=== PATIENT | female | born 1990 | race Hispanic/Latino ===

== ENCOUNTER 2023-10-06 14:08 | Day surgery (SDC) | payer OTHER ==
[2023-10-06 14:41] VITALS: BMI 32.5
[2023-10-06] MEDS ORDERED: hydrALAZINE 20 MG/ML VIAL SLOW IVP PRN (15:27)
[2023-10-06 15:54] LABS: Creatinine, Urine 196.61 mg/dL (47-110)
[2023-10-06 16:39] LABS: #Basophils 0.1 10x3/uL (0.0-0.2); #Eosinphils 0.1 10x3/uL (0.0-0.5); #Monocytes 0.8 10x3/uL (0.0-1.1); #Neutrophils 5.6 10x3/uL (1.5-8.4); %Basophils 0.6 % (0.0-2.0); %Eosinophils 1.3 % (0.0-6.0); %Lymphocytes 26.9 % (18.0-47.0); %Monocytes 8.3 % (0.0-10.0); %Neutrophils 62.5 % (40.0-75.0); Hematocrit 34.9 % (34.9-44.5); Mean Corpuscular HGB CONC 34.4 g/dL (32.0-36.0); Mean Corpuscular Hemoglobin 29.6 pg (27.0-33.0); Mean Corpuscular Volume 86.2 fl (81.6-98.3); Mean Platelet Volume 11.9 fl (7.4-10.4); Platelet Count 254 10x3/uL (150-450); RBC Distribution Width 12.5 % (11.5-14.5); Red Blood Cell (RBC) Count 4.05 10x6/uL (3.90-5.03)
[2023-10-06 17:02] LABS: ALT (SGPT) 63 U/L (8-55); AST (SGOT) 66 U/L (5-34); Albumin 3.4 g/dL (3.5-5.0); Alkaline Phosphatase 125 U/L (40-110); Anion Gap 14 mmol/L (10-20); BUN (Urea Nitrogen) 8 mg/dL (7.0-18.7); Bilirubin, Total 0.5 mg/dL (0.2-1.2); Calc. Creatinine Clearance 136 mL/min (70-130); Calcium 8.8 mg/dL (7.8-10.44); Carbon Dioxide 21 mmol/L (22-29); Chloride 106 mmol/L (98-107); Estimated GFR 114; Globulin 3.2 g/dL (2.4-3.5); Glucose 106 mg/dL (70-105); Potassium 3.7 mmol/L (3.5-5.1); Protein, Total 6.6 g/dL (6.0-8.3); Sodium 137 mmol/L (136-145)
== END 2023-10-06 19:19 | disposition short-term general hospital (02) ==
LOC: CSHLD/OP 14:08
PROVIDERS: ATTEND Advanced Practice Midwife
DX: O99.891 Other specified diseases and conditions complicating pregnancy (principal); R03.0 Elevated blood-pressure reading, without diagnosis of hypertension; O36.5930 Maternal care for other known or suspected poor fetal growth, third trimester, not applicable or unspecified; O43.102 Malformation of placenta, unspecified, second trimester; Z3A.23 23 weeks gestation of pregnancy; Z90.49 Acquired absence of other specified parts of digestive tract; Z98.82 Breast implant status; Z79.899 Other long term (current) drug therapy
CPT/HCPCS: 36415; 80053; 82570; 84156; 85025

== ENCOUNTER 2023-11-25 16:18 | Inpatient (IN) | payer OTHER ==
[2023-11-25] MEDS ORDERED: Lactated Ringer's 1,000 ML IV SCH (17:30)
[2023-11-25] MEDS ORDERED: hydrALAZINE 20 MG/ML VIAL SLOW IVP PRN (17:39)
[2023-11-25 18:58] LABS: #Monocytes 0.4 10x3/uL (0.0-1.1); #Neutrophils 3.6 10x3/uL (1.5-8.4); %Basophils 0.2 % (0.0-2.0); %Eosinophils 0.4 % (0.0-6.0); %Lymphocytes 22.4 % (18.0-47.0); %Monocytes 7.4 % (0.0-10.0); %Neutrophils 68.8 % (40.0-75.0); Hematocrit 32.6 % (34.9-44.5); Hemoglobin 10.7 g/dL (12.0-15.5); Mean Corpuscular HGB CONC 32.8 g/dL (32.0-36.0); Mean Corpuscular Hemoglobin 27.4 pg (27.0-33.0); Mean Corpuscular Volume 83.6 fl (81.6-98.3); Mean Platelet Volume 11.3 fl (7.4-10.4); Platelet Count 227 10x3/uL (150-450); RBC Distribution Width 13.2 % (11.5-14.5); White Blood Cell (WBC) Count 5.3 10x3/uL (3.5-10.5)
[2023-11-25 19:13] LABS: ALT (SGPT) 120 U/L (8-55); AST (SGOT) 189 U/L (5-34); Albumin 3.2 g/dL (3.5-5.0); Alkaline Phosphatase 234 U/L (40-110); Anion Gap 15 mmol/L (10-20); BUN (Urea Nitrogen) 6 mg/dL (7.0-18.7); Bilirubin, Total 0.7 mg/dL (0.2-1.2); Calc. Creatinine Clearance 0 mL/min (70-130); Calcium 8.2 mg/dL (7.8-10.44); Carbon Dioxide 19 mmol/L (22-29); Chloride 104 mmol/L (98-107); Estimated GFR 121; Glucose 70 mg/dL (70-105); Protein, Total 6.2 g/dL (6.0-8.3); Sodium 134 mmol/L (136-145)
[2023-11-25 19:34] LABS: Bilirubin Neg (Negative); Blood, Urine Negative (Negative); Glucose, Urine (Dipstick) Normal (Negative); Ketone, Urine 50 mg/dL (Negative); Leukocyte 25 (Negative); Nitrite Negative (Negative); Protein, Urine (Dipstick) 100 mg/dl (Neg-Trace); Specific Gravity, Urine 1.015 (1.005-1.030)
[2023-11-25 19:37] LABS: Clarity Clear (Clear)
[2023-11-25 19:41] LABS: Bacteria/HPF 1+ HPF (None Seen); CAUTI Indications for Culture Fever or rigors; Mucous/LPF Rare LPF (<2+); RBC/HPF 0-3 HPF (0-3); Squamous Epithelial 0-3 HPF (0-3); WBC/HPF 0-3 HPF (0-3)
[2023-11-25 19:42] LABS: Urine Culture Reflex No No
[2023-11-25] MEDS: Acetaminophen 325 MG TAB PO PRN (19:52)
[2023-11-25 20:08] LABS: Creatinine, Urine 174.77 mg/dL (47-110)
[2023-11-25 20:38] LABS: SARS-CoV-2 NAA Rapid Test Not Detected (NotDetected)
[2023-11-25] MEDS ORDERED: Ondansetron PF 4 MG/2 ML Vial IVP PRN (20:41)
[2023-11-25] MEDS ORDERED: Promethazine HCl 25 MG/ML VIAL IM PRN (20:41)
[2023-11-25] MEDS ORDERED: Calcium Gluc 4.6 MEQ/10 ML (100 MG/ML) SLOW IVP PRN (20:44)
[2023-11-25] MEDS ORDERED: Lorazepam 2 MG/ML VIAL SLOW IVP PRN (20:44)
[2023-11-25] MEDS ORDERED: Betamet Acet/Betamet Na Ph 30 MG/5 ML VIAL IM SCH (20:45)
[2023-11-25] MEDS: Magnesium Sulfate 20 gm/500 ml 20 GM/500 ML BAG IVPB SCH (21:34)
[2023-11-25 22:09] VITALS: BMI 32.6
[2023-11-25 23:23] LABS: HBSAg Index 0.15 S/CO (0-0.99); Hep B Surf Ag - L&D Non-Reactive S/CO (NonReactive)
[2023-11-26 00:01] LABS: Syphilis Antibody Nonreactive (Nonreactive); Syphilis Antibody Index 0.27 S/CO (<1.00 Non-Reactive)
[2023-11-26 03:11] LABS: #Monocytes 0.2 10x3/uL (0.0-1.1); #Neutrophils 4.4 10x3/uL (1.5-8.4); %Basophils 0.4 % (0.0-2.0); %Monocytes 3.2 % (0.0-10.0); %Neutrophils 77.5 % (40.0-75.0); Hemoglobin 10.5 g/dL (12.0-15.5); Mean Corpuscular HGB CONC 32.8 g/dL (32.0-36.0); Mean Corpuscular Hemoglobin 27.5 pg (27.0-33.0); Mean Corpuscular Volume 83.8 fl (81.6-98.3); Mean Platelet Volume 10.8 fl (7.4-10.4); Platelet Count 208 10x3/uL (150-450); RBC Distribution Width 13.3 % (11.5-14.5); Red Blood Cell (RBC) Count 3.82 10x6/uL (3.90-5.03); White Blood Cell (WBC) Count 5.7 10x3/uL (3.5-10.5)
[2023-11-26 04:02] LABS: ALT (SGPT) 109 U/L (8-55); AST (SGOT) 179 U/L (5-34); Alkaline Phosphatase 218 U/L (40-110); Anion Gap 16 mmol/L (10-20); BUN (Urea Nitrogen) 5 mg/dL (7.0-18.7); Bilirubin, Total 0.8 mg/dL (0.2-1.2); Calc. Creatinine Clearance 171 mL/min (70-130); Calcium 7.7 mg/dL (7.8-10.44); Carbon Dioxide 18 mmol/L (22-29); Chloride 103 mmol/L (98-107); Estimated GFR 121; Globulin 3.3 g/dL (2.4-3.5); Glucose 127 mg/dL (70-105); Potassium 3.8 mmol/L (3.5-5.1); Protein, Total 6.3 g/dL (6.0-8.3); Sodium 133 mmol/L (136-145)
[2023-11-26 05:44] LABS: Creatinine, Urine 21.78 mg/dL (47-110)
[2023-11-26] MEDS: Oseltamivir 75 MG CAP PO SCH (06:40)
[2023-11-26] MEDS: Magnesium Sulfate 20 gm/500 ml 20 GM/500 ML BAG IVPB SCH (06:45)
[2023-11-26] MEDS ORDERED: Polyethylene Glycol 3350 17 GM Packet PO PRN (09:38)
[2023-11-26] MEDS ORDERED: Acetaminophen 325 MG TAB PO PRN (11:48)
[2023-11-26] MEDS ORDERED: Acetaminophen 325 MG TAB PO SCH (12:00)
[2023-11-26] MEDS ORDERED: Magnesium Sulfate 20 gm/500 ml 20 GM/500 ML BAG ONE (12:01)
[2023-11-26] MEDS ORDERED: SODIUM CHLORIDE 0.9% IV SCH (12:15)
[2023-11-26] MEDS ORDERED: MAGNESIUM SULFATE IV SCH (12:15)
[2023-11-26] MEDS ORDERED: ADMIXTURE FEE CHEMO IV SCH (12:15)
[2023-11-26] MEDS ORDERED: Magnesium Sulfate 20 gm/500 ml 20 GM/500 ML BAG IVPB SCH (15:15)
[2023-11-26] MEDS ORDERED: Betamet Acet/Betamet Na Ph 30 MG/5 ML VIAL IM SCH (21:30)
[2023-11-27] MEDS: Oseltamivir 75 MG CAP PO SCH ×3 (01:14→17:10)
[2023-11-27] MEDS: Lactated Ringer's 1,000 ML IV SCH ×3 (01:18→23:04)
[2023-11-27 04:11] LABS: ALT (SGPT) 81 U/L (8-55); AST (SGOT) 99 U/L (5-34); Albumin 2.9 g/dL (3.5-5.0); Alkaline Phosphatase 216 U/L (40-110); Anion Gap 14 mmol/L (10-20); BUN (Urea Nitrogen) 7 mg/dL (7.0-18.7); Bilirubin, Total 0.5 mg/dL (0.2-1.2); Calc. Creatinine Clearance 157 mL/min (70-130); Carbon Dioxide 19 mmol/L (22-29); Chloride 105 mmol/L (98-107); Estimated GFR 119; Globulin 3.2 g/dL (2.4-3.5); Glucose 206 mg/dL (70-105); Potassium 4.2 mmol/L (3.5-5.1); Protein, Total 6.1 g/dL (6.0-8.3); Sodium 134 mmol/L (136-145)
[2023-11-27 04:14] LABS: #Monocytes 0.1 10x3/uL (0.0-1.1); #Neutrophils 4.4 10x3/uL (1.5-8.4); %Basophils 0.3 % (0.0-2.0); %Eosinophils 0.2 % (0.0-6.0); %Lymphocytes 19.1 % (18.0-47.0); %Monocytes 1.9 % (0.0-10.0); %Neutrophils 75.4 % (40.0-75.0); Hematocrit 34.4 % (34.9-44.5); Hemoglobin 11.1 g/dL (12.0-15.5); Mean Corpuscular HGB CONC 32.3 g/dL (32.0-36.0); Mean Corpuscular Hemoglobin 27.7 pg (27.0-33.0); Mean Corpuscular Volume 85.8 fl (81.6-98.3); Mean Platelet Volume 11.1 fl (7.4-10.4); Platelet Count 235 10x3/uL (150-450); RBC Distribution Width 13.3 % (11.5-14.5); Red Blood Cell (RBC) Count 4.01 10x6/uL (3.90-5.03); White Blood Cell (WBC) Count 5.8 10x3/uL (3.5-10.5)
[2023-11-28 04:41] LABS: #Monocytes 0.4 10x3/uL (0.0-1.1); #Neutrophils 4.9 10x3/uL (1.5-8.4); %Basophils 0.5 % (0.0-2.0); %Eosinophils 0.3 % (0.0-6.0); %Lymphocytes 22.8 % (18.0-47.0); %Monocytes 5.3 % (0.0-10.0); Hematocrit 31.2 % (34.9-44.5); Mean Corpuscular HGB CONC 32.1 g/dL (32.0-36.0); Mean Corpuscular Hemoglobin 27.5 pg (27.0-33.0); Mean Platelet Volume 11.5 fl (7.4-10.4); Platelet Count 231 10x3/uL (150-450); RBC Distribution Width 13.3 % (11.5-14.5); Red Blood Cell (RBC) Count 3.63 10x6/uL (3.90-5.03); White Blood Cell (WBC) Count 7.4 10x3/uL (3.5-10.5)
[2023-11-28 04:58] LABS: ALT (SGPT) 66 U/L (8-55); AST (SGOT) 68 U/L (5-34); Albumin 2.6 g/dL (3.5-5.0); Alkaline Phosphatase 195 U/L (40-110); Anion Gap 12 mmol/L (10-20); BUN (Urea Nitrogen) 8 mg/dL (7.0-18.7); Bilirubin, Total 0.4 mg/dL (0.2-1.2); Calc. Creatinine Clearance 165 mL/min (70-130); Calcium 7.4 mg/dL (7.8-10.44); Carbon Dioxide 22 mmol/L (22-29); Chloride 108 mmol/L (98-107); Estimated GFR 120; Globulin 2.8 g/dL (2.4-3.5); Glucose 177 mg/dL (70-105); Potassium 3.7 mmol/L (3.5-5.1); Protein, Total 5.4 g/dL (6.0-8.3); Sodium 138 mmol/L (136-145)
[2023-11-28] MEDS: Oseltamivir 75 MG CAP PO SCH (05:54)
[2023-11-28] MEDS: Lactated Ringer's 1,000 ML IV SCH (05:54)
[2023-11-28] MEDS ORDERED: HumaLOG 300 UNITS/3 ML VIAL SC PRN ×2 (09:13)
[2023-11-28] MEDS ORDERED: Glucagon 1 MG/ML KIT IM PRN (09:13)
[2023-11-28] MEDS ORDERED: Dextrose 5% in Water 1,000 ML IV PRN (09:13)
[2023-11-28] MEDS ORDERED: Dextrose 50% Abboject 50 ML SYRINGE SLOW IVP PRN (09:13)
[2023-11-28] MEDS ORDERED: Ursodiol 300 MG CAP PO SCH ×2 (17:00)
[2023-11-29] MEDS ORDERED: Ursodiol 300 MG CAP PO SCH (08:00)
[2023-11-29 08:23] LABS: #Eosinphils 0.1 10x3/uL (0.0-0.5); #Monocytes 0.5 10x3/uL (0.0-1.1); %Basophils 0.5 % (0.0-2.0); %Eosinophils 0.6 % (0.0-6.0); %Lymphocytes 28.8 % (18.0-47.0); %Monocytes 6.2 % (0.0-10.0); %Neutrophils 61.1 % (40.0-75.0); Hematocrit 32.7 % (34.9-44.5); Hemoglobin 10.4 g/dL (12.0-15.5); Mean Corpuscular HGB CONC 31.8 g/dL (32.0-36.0); Mean Corpuscular Hemoglobin 27.5 pg (27.0-33.0); Mean Corpuscular Volume 86.5 fl (81.6-98.3); Mean Platelet Volume 11.4 fl (7.4-10.4); Platelet Count 240 10x3/uL (150-450); RBC Distribution Width 13.4 % (11.5-14.5); Red Blood Cell (RBC) Count 3.78 10x6/uL (3.90-5.03); White Blood Cell (WBC) Count 8.1 10x3/uL (3.5-10.5)
[2023-11-29 09:07] LABS: ALT (SGPT) 64 U/L (8-55); AST (SGOT) 67 U/L (5-34); Albumin 2.6 g/dL (3.5-5.0); Alkaline Phosphatase 209 U/L (40-110); Anion Gap 13 mmol/L (10-20); BUN (Urea Nitrogen) 9 mg/dL (7.0-18.7); Bilirubin, Total 0.4 mg/dL (0.2-1.2); Calc. Creatinine Clearance 177 mL/min (70-130); Carbon Dioxide 20 mmol/L (22-29); Chloride 109 mmol/L (98-107); Estimated GFR 123; Globulin 2.9 g/dL (2.4-3.5); Glucose 105 mg/dL (70-105); Potassium 4.1 mmol/L (3.5-5.1); Protein, Total 5.5 g/dL (6.0-8.3); Sodium 138 mmol/L (136-145)
[2023-11-29] MEDS: Ursodiol 300 MG CAP PO SCH ×2 (14:06→20:42)
[2023-11-29] MEDS: Acetaminophen 325 MG TAB PO PRN (20:43)
[2023-11-30 07:49] LABS: #Eosinphils 0.1 10x3/uL (0.0-0.5); #Monocytes 0.5 10x3/uL (0.0-1.1); #Neutrophils 4.7 10x3/uL (1.5-8.4); %Basophils 0.5 % (0.0-2.0); %Eosinophils 0.9 % (0.0-6.0); %Lymphocytes 32.4 % (18.0-47.0); %Monocytes 5.5 % (0.0-10.0); %Neutrophils 57.1 % (40.0-75.0); Hematocrit 30.8 % (34.9-44.5); Hemoglobin 10.1 g/dL (12.0-15.5); Mean Corpuscular HGB CONC 32.8 g/dL (32.0-36.0); Mean Corpuscular Hemoglobin 28.1 pg (27.0-33.0); Mean Corpuscular Volume 85.8 fl (81.6-98.3); Mean Platelet Volume 11.5 fl (7.4-10.4); Platelet Count 226 10x3/uL (150-450); RBC Distribution Width 13.2 % (11.5-14.5); Red Blood Cell (RBC) Count 3.59 10x6/uL (3.90-5.03); White Blood Cell (WBC) Count 8.2 10x3/uL (3.5-10.5)
[2023-11-30 07:51] LABS: ALT (SGPT) 68 U/L (8-55); AST (SGOT) 65 U/L (5-34); Albumin 2.6 g/dL (3.5-5.0); Alkaline Phosphatase 210 U/L (40-110); Anion Gap 13 mmol/L (10-20); BUN (Urea Nitrogen) 6 mg/dL (7.0-18.7); Bilirubin, Total 0.5 mg/dL (0.2-1.2); Calc. Creatinine Clearance 199 mL/min (70-130); Calcium 8.2 mg/dL (7.8-10.44); Carbon Dioxide 21 mmol/L (22-29); Chloride 108 mmol/L (98-107); Estimated GFR 126; Glucose 103 mg/dL (70-105); Potassium 4.3 mmol/L (3.5-5.1); Protein, Total 5.6 g/dL (6.0-8.3); Sodium 138 mmol/L (136-145)
[2023-11-30] MEDS: Ursodiol 300 MG CAP PO SCH ×2 (09:16→14:18)
[2023-11-30 12:03] VITALS: BP 129/68; TEMP 98.7
== END 2023-11-30 16:30 | disposition home health service (06) | DRG 831 ==
LOC: CSHLD/OP 16:18 → CSHLD 20:24 → INTOOBSV 20:24 → CSHLD 11-26 13:23 → OBSVTOIN 11-26 16:21 → CSHANTE 11-27 14:50
PROVIDERS: ADMIT Obstetrics & Gynecology; ATTEND Obstetrics & Gynecology
DX: O36.8130 Decreased fetal movements, third trimester, not applicable or unspecified (principal); O14.13 Severe pre-eclampsia, third trimester; O26.643 Intrahepatic cholestasis of pregnancy, third trimester; Z3A.30 30 weeks gestation of pregnancy; O99.513 Diseases of the respiratory system complicating pregnancy, third trimester; J10.1 Influenza due to other identified influenza virus with other respiratory manifestations; O24.410 Gestational diabetes mellitus in pregnancy, diet controlled; O09.523 Supervision of elderly multigravida, third trimester; O36.5930 Maternal care for other known or suspected poor fetal growth, third trimester, not applicable or unspecified; O28.0 Abnormal hematological finding on antenatal screening of mother; R74.01 Elevation of levels of liver transaminase levels; Z11.52 Encounter for screening for COVID-19
CPT/HCPCS: 0241U; 36415; 36416; 76819; 80053; 81001; 82239; 82570; 84156; 85025; 86780; 86850; 86900; 86901; 87070; 87077; 87186; 87205; 87340; 99285; J0702; J3475; J7120

== ENCOUNTER 2023-12-18 09:37 | Inpatient (IN) | payer OTHER ==
[2023-12-18 09:50] VITALS: BMI 33.4
[2023-12-18 11:17] LABS: #Basophils 0.1 10x3/uL (0.0-0.2); #Eosinphils 0.1 10x3/uL (0.0-0.5); #Monocytes 0.6 10x3/uL (0.0-1.1); #Neutrophils 5.2 10x3/uL (1.5-8.4); %Basophils 0.7 % (0.0-2.0); %Eosinophils 0.9 % (0.0-6.0); %Lymphocytes 25.9 % (18.0-47.0); %Monocytes 7.3 % (0.0-10.0); %Neutrophils 64.3 % (40.0-75.0); Hematocrit 31.4 % (34.9-44.5); Hemoglobin 10.3 g/dL (12.0-15.5); Mean Corpuscular HGB CONC 32.8 g/dL (32.0-36.0); Mean Corpuscular Hemoglobin 27.2 pg (27.0-33.0); Mean Corpuscular Volume 83.1 fl (81.6-98.3); Mean Platelet Volume 11.6 fl (7.4-10.4); Platelet Count 256 10x3/uL (150-450); RBC Distribution Width 13.8 % (11.5-14.5); Red Blood Cell (RBC) Count 3.78 10x6/uL (3.90-5.03); White Blood Cell (WBC) Count 8.1 10x3/uL (3.5-10.5)
[2023-12-18 11:26] LABS: ALT (SGPT) 26 U/L (8-55); AST (SGOT) 32 U/L (5-34); Albumin 2.8 g/dL (3.5-5.0); Alkaline Phosphatase 277 U/L (40-110); Anion Gap 13 mmol/L (10-20); BUN (Urea Nitrogen) 10 mg/dL (7.0-18.7); Bilirubin, Total 0.5 mg/dL (0.2-1.2); Calc. Creatinine Clearance 178 mL/min (70-130); Calcium 8.6 mg/dL (7.8-10.44); Carbon Dioxide 21 mmol/L (22-29); Chloride 107 mmol/L (98-107); Estimated GFR 122; Globulin 3.5 g/dL (2.4-3.5); Glucose 83 mg/dL (70-105); Protein, Total 6.3 g/dL (6.0-8.3); Sodium 137 mmol/L (136-145)
[2023-12-18] MEDS ORDERED: Calcium Gluc 4.6 MEQ/10 ML (100 MG/ML) SLOW IVP PRN (12:52)
[2023-12-18] MEDS ORDERED: Misoprostol 200 MCG TAB PR PRN (12:52)
[2023-12-18] MEDS ORDERED: Ondansetron PF 4 MG/2 ML Vial IVP PRN ×3 (12:52→20:14)
[2023-12-18] MEDS ORDERED: Lorazepam 2 MG/ML VIAL SLOW IVP PRN (12:52)
[2023-12-18] MEDS ORDERED: Carboprost 250 MCG/ML AMP IM PRN (12:52)
[2023-12-18] MEDS ORDERED: Tranexamic Acid 1,000 MG/10 ML VIAL IVP PRN (12:52)
[2023-12-18] MEDS ORDERED: hydrALAZINE 20 MG/ML VIAL SLOW IVP PRN ×3 (12:52)
[2023-12-18] MEDS ORDERED: Promethazine HCl 25 MG/ML VIAL IM PRN ×2 (12:52→20:14)
[2023-12-18] MEDS ORDERED: Labetalol HCl 100 MG/20 ML VIAL SLOW IVP PRN ×2 (12:52)
[2023-12-18] MEDS ORDERED: fentaNYL 50 mcg/mL 1 mL Vial SLOW IVP PRN ×3 (12:52→21:30)
[2023-12-18] MEDS ORDERED: Diphenoxylate HCl/Atropine Tablet PO PRN ×2 (12:52)
[2023-12-18] MEDS: hydrALAZINE 20 MG/ML VIAL SLOW IVP PRN (12:59)
[2023-12-18] MEDS ORDERED: Oxytocin 30 units/NS 500 ML 500 ML IV SCH ×2 (13:00→15:00)
[2023-12-18] MEDS: Lactated Ringer's 1,000 ML IV SCH (13:01)
[2023-12-18] MEDS: Magnesium Sulfate 20 gm/500 ml 20 GM/500 ML BAG IVPB SCH (13:01)
[2023-12-18] MEDS: Betamet Acet/Betamet Na Ph 30 MG/5 ML VIAL ONE (13:05)
[2023-12-18] MEDS: Betamet Acet/Betamet Na Ph 30 MG/5 ML VIAL IM SCH (13:07)
[2023-12-18] MEDS ORDERED: Magnesium Sulfate 20 gm/500 ml 4 GM/100 ML BAG IVPB SCH (13:30)
[2023-12-18] MEDS: Magnesium Sulfate 20 gm/500 ml 20 GM/500 ML BAG ONE (13:38)
[2023-12-18] MEDS: Lidocaine 1% (PF) 30 ML VIAL ONE (14:50)
[2023-12-18] MEDS ORDERED: Lidocaine 1% (PF) 30 ML VIAL SC PRN (14:52)
[2023-12-18 14:55] LABS: Hematocrit 31.6 % (34.9-44.5); Hemoglobin 10.4 g/dL (12.0-15.5); Mean Corpuscular HGB CONC 32.9 g/dL (32.0-36.0); Mean Corpuscular Hemoglobin 27.2 pg (27.0-33.0); Mean Corpuscular Volume 82.5 fl (81.6-98.3); Mean Platelet Volume 11.5 fl (7.4-10.4); Platelet Count 266 10x3/uL (150-450); RBC Distribution Width 13.9 % (11.5-14.5); Red Blood Cell (RBC) Count 3.83 10x6/uL (3.90-5.03); White Blood Cell (WBC) Count 8.5 10x3/uL (3.5-10.5)
[2023-12-18] MEDS: Misoprostol 100 MCG TAB VAG SCH (15:11)
[2023-12-18 15:21] LABS: HBSAg Index 0.22 S/CO (0-0.99); Hep B Surf Ag - L&D Non-Reactive S/CO (NonReactive)
[2023-12-18 15:22] LABS: Syphilis Antibody Nonreactive (Nonreactive); Syphilis Antibody Index 0.03 S/CO (<1.00 Non-Reactive)
[2023-12-18] MEDS: Penicillin G Potassium 5 MILL.UNITS in Sodium Chloride 0.9% 100 ML IVPB SCH (15:33)
[2023-12-18] MEDS ORDERED: Penicillin G 2.5 MILL.units 2.5 MILL.UNITS in Premix 1 BAG IVPB SCH (18:00)
[2023-12-18 19:55] LABS: Analyzer IN Cardio CS NICU; Critical Notified By: CP.PH; RapidComm Collect By CBN; pH (Cord, venous) 7.334 (7.250-7.350)
[2023-12-18 19:57] LABS: Analyzer IN Cardio CS NICU; Critical Notified By: CP.PH; RapidComm Collect By CBN
[2023-12-18] MEDS ORDERED: diphenhydrAMINE 50 MG/ML VIAL IVP PRN (20:14)
[2023-12-18] MEDS ORDERED: diphenhydrAMINE 25 MG CAP PO PRN (20:14)
[2023-12-18] MEDS ORDERED: Naloxone HCl 0.4 mg/ml Vial IV PRN (20:14)
[2023-12-18] MEDS ORDERED: diphenhydrAMINE 50 MG/ML VIAL IM PRN (20:14)
[2023-12-18] MEDS ORDERED: Communication Order-Pharmacy FS SCH (20:15)
[2023-12-18] MEDS: fentaNYL 50 mcg/mL 1 mL Vial ONE (20:46)
[2023-12-18] MEDS: FENTANYL 500 MCG/10 ML VIAL 1,000 MCG in Sodium Chloride 0.9% 30 ML IV PRN (21:12)
[2023-12-19 01:48] LABS: #Eosinphils 0.1 10x3/uL (0.0-0.5); #Monocytes 0.5 10x3/uL (0.0-1.1); #Neutrophils 10.9 10x3/uL (1.5-8.4); %Basophils 0.3 % (0.0-2.0); %Eosinophils 0.4 % (0.0-6.0); %Lymphocytes 10.9 % (18.0-47.0); %Monocytes 3.6 % (0.0-10.0); Hematocrit 27.8 % (34.9-44.5); Mean Corpuscular HGB CONC 32.4 g/dL (32.0-36.0); Mean Corpuscular Volume 83.5 fl (81.6-98.3); Mean Platelet Volume 11.7 fl (7.4-10.4); Platelet Count 308 10x3/uL (150-450); RBC Distribution Width 14.1 % (11.5-14.5); Red Blood Cell (RBC) Count 3.33 10x6/uL (3.90-5.03)
[2023-12-19 02:00] LABS: D-Dimer Test 2.63 mcg/mL (0.19-0.50); INR-International Normal Ratio 0.9; PTT 28.2 sec (22.0-33.0); Prothrombin Time 9.4 sec (9.5-12.1)
[2023-12-19 06:10] LABS: Critical Call Chemistry NUR.LHA @ 0609; Magnesium 5.7 mg/dL (1.6-2.6)
[2023-12-19] MEDS ORDERED: Lanolin Ointment 7 GM TUBE TOP PRN (06:35)
[2023-12-19] MEDS ORDERED: Bisacodyl 10 MG SUPP PR PRN (06:35)
[2023-12-19 09:35] LABS: Hematocrit 22.8 % (34.9-44.5); Hemoglobin 7.4 g/dL (12.0-15.5); Mean Corpuscular HGB CONC 32.5 g/dL (32.0-36.0); Mean Corpuscular Hemoglobin 26.9 pg (27.0-33.0); Mean Corpuscular Volume 82.9 fl (81.6-98.3); Mean Platelet Volume 11.4 fl (7.4-10.4); Platelet Count 297 10x3/uL (150-450); RBC Distribution Width 14.5 % (11.5-14.5); Red Blood Cell (RBC) Count 2.75 10x6/uL (3.90-5.03); White Blood Cell (WBC) Count 12.7 10x3/uL (3.5-10.5)
[2023-12-19] MEDS: Simethicone Chewable 80 MG TAB PO PRN (12:32)
[2023-12-19] MEDS: Magnesium Sulfate 20 gm/500 ml 20 GM/500 ML BAG ONE (16:43)
[2023-12-19] MEDS: Prenatal Vitamin 1 TAB PO SCH (17:59)
[2023-12-19] MEDS: Ferrous Sulfate 325 MG TAB PO SCH ×2 (17:59→20:43)
[2023-12-19] MEDS: Docusate 100 MG CAP PO SCH ×2 (17:59→20:43)
[2023-12-19] MEDS: Ibuprofen 800 MG TAB PO SCH (18:41)
[2023-12-19] MEDS: HYDROcodone/Acetaminophen 5/325 mg Tablet PO PRN ×2 (18:47→22:48)
[2023-12-19] MEDS: Midazolam HCl 2 mg/2 ml Vial ONE (21:01)
[2023-12-19] MEDS: Boostrix 0.5 ML (Tdap) VIAL (>/=7 yrs of age) IM ONE (21:01)
[2023-12-19] MEDS: CEFAZOLIN 1 GM VIAL ONE (21:01)
[2023-12-19] MEDS: CEFAZOLIN 2 GM VIAL ONE (21:01)
[2023-12-19] MEDS: fentaNYL 50 mcg/mL 1 mL Vial ONE ×3 (21:02)
[2023-12-19] MEDS: PHENYLEPHRINE-NS 100 MCG/ML 10 ML SYRINGE ONE (21:02)
[2023-12-19] MEDS: Oxytocin 10 UNITS/ML VIAL ONE (21:02)
[2023-12-20 05:50] LABS: Hematocrit 21.5 % (34.9-44.5); Mean Corpuscular HGB CONC 32.6 g/dL (32.0-36.0); Mean Corpuscular Hemoglobin 27.7 pg (27.0-33.0); Mean Platelet Volume 11.3 fl (7.4-10.4); Platelet Count 295 10x3/uL (150-450); RBC Distribution Width 14.6 % (11.5-14.5); Red Blood Cell (RBC) Count 2.53 10x6/uL (3.90-5.03); White Blood Cell (WBC) Count 11.3 10x3/uL (3.5-10.5)
[2023-12-21 04:49] LABS: #Basophils 0.1 10x3/uL (0.0-0.2); #Eosinphils 0.1 10x3/uL (0.0-0.5); #Monocytes 0.8 10x3/uL (0.0-1.1); #Neutrophils 8.1 10x3/uL (1.5-8.4); %Basophils 0.4 % (0.0-2.0); %Eosinophils 0.7 % (0.0-6.0); %Lymphocytes 23.9 % (18.0-47.0); %Monocytes 6.6 % (0.0-10.0); Hematocrit 24.5 % (34.9-44.5); Hemoglobin 7.6 g/dL (12.0-15.5); Mean Corpuscular Hemoglobin 26.5 pg (27.0-33.0); Mean Corpuscular Volume 85.4 fl (81.6-98.3); Mean Platelet Volume 10.2 fl (7.4-10.4); Platelet Count 355 10x3/uL (150-450); RBC Distribution Width 14.9 % (11.5-14.5); Red Blood Cell (RBC) Count 2.87 10x6/uL (3.90-5.03); White Blood Cell (WBC) Count 12.4 10x3/uL (3.5-10.5)
[2023-12-21 08:17] VITALS: BP 119/72; TEMP 98
== END 2023-12-21 13:40 | disposition home or self-care (01) | DRG 787 ==
LOC: CSHLD/OP 09:37 → CSHLD 13:05 → CSHPP 12-19 20:26
PROVIDERS: ADMIT Obstetrics & Gynecology; ATTEND Obstetrics & Gynecology
PROC: 10D00Z1 Extraction of Products of Conception, Low, Open Approach (ICD-10-PCS; principal; 2023-12-18)
DX: O14.14 Severe pre-eclampsia complicating childbirth (principal); D62 Acute posthemorrhagic anemia; Z3A.34 34 weeks gestation of pregnancy; Z37.0 Single live birth; O76 Abnormality in fetal heart rate and rhythm complicating labor and delivery; O45.93 Premature separation of placenta, unspecified, third trimester; O36.5930 Maternal care for other known or suspected poor fetal growth, third trimester, not applicable or unspecified
CPT/HCPCS: 36415; 51702; 80053; 82805; 83735; 85025; 85027; 85049; 85300; 85362; 85384; 85610; 85730; 86780; 86850; 86900; 86901; 87340; 88307; 99285; J0360; J0690; J0702; J2250; J2540; J2590; J3010; J3475; J3490; J7120